=== PATIENT | female | born 1960 | race Caucasian/White ===

== ENCOUNTER 2019-01-08 05:26 | Inpatient (IN) | payer OTHER ==
[2018-12-23 12:38] LABS: HEMATOCRIT 35.4 % (37.0-47.0); HEMOGLOBIN 12.3 gm/dL (12.0-15.0); MCH 32.3 pg (26.0-34.0); MCHC 34.6 g/dL (28.0-37.0); MCV 93.3 fL (80.0-100.0); RBC 3.79 mil/uL (4.20-5.00); RDW 13.7 % (10.5-14.5); WBC 4.9 thou/uL (4.0-11.0)
[2018-12-23 12:39] LABS: URINE BILIRUBIN NEGATIVE (Negative); URINE BLOOD TRACE (Negative); URINE CLARITY CLOUDY; URINE COLOR YELLOW; URINE GLUCOSE-RANDOM* NEGATIVE (Negative); URINE KETONES NEGATIVE (Negative); URINE LEUKOCYTES-REFLEX 1+ (Negative); URINE NITRITE-REFLEX POSITIVE (Negative); URINE PROTEIN (DIPSTICK) NEGATIVE (Negative); URINE UROBILINOGEN 0.2 E.U./dl (0.2-1.0)
[2018-12-23 12:45] LABS: ALBUMIN 3.4 g/dL (3.4-5.0); CALCIUM 9.2 mg/dL (8.5-10.1); CREATININE 0.9 mg/dL (0.6-1.0)
[2018-12-23 12:47] LABS: BACTERIA-REFLEX >30 Many /HPF (None Seen); CASTS None Seen /LPF (None Seen); CRYSTALS None Seen /LPF (None Seen); SQUAMOUS None Seen /LPF (0-3); URINE RBC None Seen /HPF (0-2)
[2018-12-23 12:48] LABS: PROTIME 10.3 Seconds (9.3-11.4)
[~2019-01-08] VITALS: Ht 165.1 cm; Wt 55.3 kg
--- NOTE | ~2019-01-08 | O ---
[facility] [place] [address] OPERATIVE REPORT Name: DAVID MOTA Room #: 424-P [facility] IN M.R.#: [id number] Admission: 01/08/19 ������������������ Attend Phys: Jason Roth MD Discharge: ������������������ Date of : 64 Report #: [id number] THIS REPORT FOR: //name// CC: KIMANI LOUISE Physician staff Jason Roth DATE OF SERVICE: 01/08/2019 PREOPERATIVE DIAGNOSIS: Left hip stage 4 avascular necrosis. POSTOPERATIVE DIAGNOSIS: Left hip stage 4 avascular necrosis. PROCEDURE: Left total hip arthroplasty. SURGEON: Jason Roth MD. ANESTHESIA: LMA. IMPLANTS: [employer] size 11 high-offset Synergy press fit stem, a size 50 R3 acetabular cup with 1 acetabular screw, and a size 32 +8 Oxinium head. ESTIMATED BLOOD LOSS: 100 mL. COMPLICATIONS: None. SPECIMENS: None. CONDITION UPON LEAVING THE OPERATING ROOM: Stable. INDICATIONS FOR PROCEDURE: The patient is a 58-year-old female with left hip stage 4 avascular necrosis with severe pain and debility. She had failed conservative measures and after discussion with her, she elected for left total hip arthroplasty. DESCRIPTION OF PROCEDURE: Risks, benefits, alternatives, complications were discussed in detail with the patient including but not limited to risk of anesthesia; risk of damage to nerves, arteries, blood vessels; risk for infection, bleeding; risk for leg length discrepancy, instability and need for reoperation. Informed consent was obtained from the patient. Left hip was appropriately marked in the preoperative holding area. She was brought to the operating room and placed in the supine position on the operating room table. LMA anesthesia was induced without complication. She was then placed in the right lateral decubitus position with the left hip uppermost. Left hip was then prepped and draped in normal sterile fashion. IV Ancef was given for preoperative antibiotics. Timeout was performed properly identifying the [facility] [address] [place] [address] OPERATIVE REPORT Name: DAVID MOTA Room #: 424-P [facility] IN M.R.#: [id number] Admission: 01/08/19 ������������������ Attend Phys: Jason Roth MD Discharge: ������������������ Date of : 64 Report #: [id number] patient and procedure as well as the instrumentation and implants. All in the operating room were in agreement. Standard posterior approach to the hip was made with 10 blade through the skin. Dissection was taken down to the fascia with Bovie cautery and a fresh #10 blade was used to make the fascial incision. This was taken proximally and distally with curved Álvarez scissor. Charnley retractor was placed. Trochanteric bursa was taken down with Bovie cautery. Piriformis tendon was identified, tagged and taken down with Bovie cautery. Short external rotators were also taken down with Bovie cautery. Capsulotomy was made and capsule ends were tagged for later repair. Hip was dislocated and there was extensive avascular necrosis of the femoral head with collapse of the head. Femoral neck cut was made 1 cm proximal to lesser trochanter based on preoperative templating and femoral head was removed. Deep acetabular retractors were placed and the labrum was removed sharply. Pulvinar was removed with Bovie cautery. Acetabulum was then sequentially reamed up to a size 50, at which point, there was excellent bleeding cancellous bone. This was trialed with a size 49 cup and this was found to have a good fit. A final size 50 R3 acetabular cup was then placed and seated. One acetabular screw was placed for backup fixation and polyethylene liner for a 32 head was placed. Attention was then turned to the femur. This was reamed and broached up to a size 11, at which point, the size 11 broach was stable. This was trialed with a high offset neck and a 32 +0 head. Hip was reduced, taken through range of motion, found to be stable, found to have a short leg length on the left compared to the right and it was felt we could make up for this with the final implant. Hip was dislocated and the broach was removed. Final size 11 high-offset Synergy press fit stem was placed and seated. This was then trialed with a 32 +4 and a 32 +8 head. The +8 head had the best leg length and stability. Final size 32 +8 Oxinium head was then placed. Hip was reduced, taken through range of motion, found to be stable, found to have equal leg lengths. The hip joint was thoroughly irrigated with normal saline and periarticular injection consisting of morphine, ropivacaine, epinephrine and Toradol was placed around the hip joint capsule. A gram of vancomycin was placed deep in the hip joint. The capsule and piriformis were repaired with 0 FiberWire. Deep fascia was closed with 0 Vicryl. Skin was closed with 2-0 Vicryl, 3-0 Monocryl, Dermabond and a KIMBERLY dressing was applied. The patient tolerated this procedure well and went to recovery room under care of anesthesia postoperatively. ��������������������������������������������� ���������������������������������������� By: ��������������������������������������������� [id number] Jason Roth MD /nelly
[~2019-01-08 05:26] MED LIST: ASPIR 8181 MG PO; ATORVASTATIN CA40 MG PO; CELEXA40 MG PO; CENTRUM SILVER1 EAC4 PO; COREG6.25 MG PO; LASIX 20 MG TAB20 MG PO; LISINOPRIL2.5 MG PO; NORCO 5-325 TA1 EACH PO; POTASSIUM CHLO20 ME2 PO; VITAMIN B-1100 M1 PO; VITAMIN B-12500 MCG PO; ZANAFLEX4 MG PO
[2019-01-08 11:07] VITALS: BP 90/58
[2019-01-08 16:10] VITALS: BP 85/60
[2019-01-08 16:30] VITALS: BP 90/62
[2019-01-08 17:30] VITALS: BP 81/42
[2019-01-08 18:30] VITALS: BP 85/63
--- NOTE | 2019-01-08 19:25 | NUR ---
ASSESMENT COMPLETED. BP LOW OTHERWISE VSS. PT RSTING IN BED. KIMBERLY CDI. PAIN CONTROLLED- REFUSES MEDS AT THIS TIME. ADDUCTOR PILLOW IN PLACE.
[2019-01-08 20:07] VITALS: BP 105/58
[2019-01-09 05:06] VITALS: BP 111/51
[2019-01-09 05:37] LABS: HEMATOCRIT 36.9 % (37.0-47.0); HEMOGLOBIN 12.6 gm/dL (12.0-15.0); MCHC 34.3 g/dL (28.0-37.0); MCV 96.4 fL (80.0-100.0); RBC 3.83 mil/uL (4.20-5.00); RDW 13.9 % (10.5-14.5); WBC 9.3 thou/uL (4.0-11.0)
--- NOTE | 2019-01-09 06:04 | NUR ---
PT. ALERT AND ORIENTED X4 FLUIDS GOING AND VS ASSESSSED. PAIN MED GIVEN AND ABDUCTED PILLOW IN PLACE.JOHNNY HOSE ON BOTH EXTREMITIES AND SCDS ON. ICE PACK PLACED. BED IN LOW POSITION AND PT ABLE TO REPOSITIONE SELF IN BED WILL CONTINUE TO MONITOR.
[2019-01-09 07:47] VITALS: BP 145/75
[2019-01-09] MEDS ORDERED: ASPIR 8181 MG PO (12:27)
[2019-01-09] MEDS ORDERED: HYDROCODON-ACE1 EAC7 PO (12:27)
[2019-01-09] MEDS ORDERED: MS CONTIN15 MG PO (12:27)
[2019-01-09] MEDS ORDERED: NEURONTIN 300300 M1 PO (12:27)
[2019-01-09 12:57] VITALS: BP 145/75
[2019-01-09 13:31] VITALS: BP 145/75
--- NOTE | 2019-01-09 15:40 | NUR ---
ASSESSMENT-PT LIVES [place] L[place]. SHE DOES NOT DRIVE. SHE HAS FRIENDS/FAMILY THAT ASSIST WITH TRANSPORTATION. PT HAS HER OUTPT THERAPY APPT AT 1400 TOMORROW AT [facility] OUTPT THERAPY DEPT. SHE HAS ARRANGED FOR A TOILET RISER TO BE DELIVERED TO HER HOME LATER TODAY. SHE HAS A CANE AND GRAB BARS BUT NEEDS A ROLLER WALKER FOR HOME. OFFERED DME OPTIONS AND SHE CHOSE [employer]. DACIA MCDANIEL AND ALAN FROM [employer] ISSUED PT A FWW BEFORE DC. NO OTHER DC NEEDS IDENTIFIED.
== END 2019-01-09 13:35 | disposition home or self-care (01) | DRG 470 ==
LOC: TBA 05:26 → PRE 05:36 → 4E 16:09 → ENTRNSPT 01-09 13:16 → EDTRNSPTSTS 01-09 13:23 → 4E 01-09 13:35
PROVIDERS: ADMIT Orthopaedic Surgery
PROC: 0SRB06A Replacement of Left Hip Joint with Oxidized Zirconium on Polyethylene Synthetic Substitute, Uncemented, Open Approach (ICD-10-PCS; principal; 2019-01-08)
DX: M87.852 Other osteonecrosis, left femur (principal); G89.29 Other chronic pain; E78.00 Pure hypercholesterolemia, unspecified; Z87.891 Personal history of nicotine dependence; Z79.899 Other long term (current) drug therapy
CPT/HCPCS: 10783; 50010; 50101; 50382; 50414; 53000; 53078; 53368; 54118; 56524; 56527; 56528; 56530; 57095; 57103; 62110; 62900; 70005